=== PATIENT | female | born 1980 | race Caucasian/White ===

== ENCOUNTER 2021-02-25 19:08 | Emergency (ER) | payer OTHER ==
[~2021-02-25] VITALS: Ht 149.9 cm; Wt 77.3 kg
[2021-02-25 20:28] VITALS: BP 117/75
[2021-02-25 21:11] LABS: COVID AG,FIA SOURCE NASOPHARYNGEAL
[2021-02-25 21:49] LABS: INFLUENZA TYPE A NEGATIVE FOR TYPE A (NEGATIVE); INFLUENZA TYPE B NEGATIVE FOR TYPE B (NEGATIVE)
== END 2021-02-25 22:40 | disposition home or self-care (01) ==
LOC: EMS 19:12
DX: U07.1 COVID-19 (principal); F17.210 Nicotine dependence, cigarettes, uncomplicated
CPT/HCPCS: 87426; 87804; 99283; U0003

== ENCOUNTER 2021-04-29 20:00 | Emergency (ER) | payer OTHER ==
[~2021-04-29] VITALS: Ht 149.9 cm; Wt 79.5 kg
[2021-04-29 20:15] VITALS: BP 133/85
[2021-04-29 20:26] LABS: COVID AG,FIA SOURCE NASAL SWAB
== END 2021-04-29 20:30 | disposition home or self-care (01) ==
LOC: EMS 20:03
DX: Z20.822 Contact with and (suspected) exposure to COVID-19 (principal)
CPT/HCPCS: 87426; 99283; C9803

== ENCOUNTER 2021-04-30 21:15 | Emergency (ER) | payer OTHER | END 2021-04-30 21:53 | disposition left against medical advice (07) | LOC: EMS 21:24 | DX: Z20.822 Contact with and (suspected) exposure to COVID-19 (principal); Z53.21 Procedure and treatment not carried out due to patient leaving prior to being seen by health care provider ==

== ENCOUNTER 2021-10-26 22:19 | Emergency (ER) | payer OTHER ==
[~2021-10-26] VITALS: Ht 149.9 cm; Wt 61.8 kg
[2021-10-26] MEDS ORDERED: PROPARACAINE HCL 0.5% 15 ML OPHTHALMIC SOLUTION ONE (23:35)
[2021-10-26] MEDS ORDERED: TETRACAINE HCL/PF 0.5% 4 ML OPHTHALMIC SOLUTION OS ONE (23:45)
[2021-10-26] MEDS ORDERED: PROPARACAINE HCL 0.5% 15 ML OPHTHALMIC SOLUTION OS ONE (23:45)
[2021-10-27] MEDS ORDERED: MOXI3DRO27 OS (00:45)
[2021-10-27] MEDS ORDERED: KETO.5OS OS (00:46)
[2021-10-27 00:51] VITALS: BP 118/71
== END 2021-10-27 00:54 | disposition home or self-care (01) ==
LOC: EMS 22:20
DX: S05.02XA Injury of conjunctiva and corneal abrasion without foreign body, left eye, initial encounter (principal); X58.XXXA Exposure to other specified factors, initial encounter; Y93.89 Activity, other specified; Y92.89 Other specified places as the place of occurrence of the external cause; Y99.8 Other external cause status
CPT/HCPCS: 99284; J9035; Z7502; Z7610

== ENCOUNTER 2022-07-08 06:33 | Emergency (ER) | payer OTHER ==
[~2022-07-08] VITALS: Ht 149.9 cm; Wt 62.3 kg
[~2022-07-08 06:33] MED LIST: KETO-108 OS; MOXI3DRO27 OS
[2022-07-08 06:35] VITALS: BP 129/81
[2022-07-08] MEDS ORDERED: GuaiFENesin/D-METHORPHAN [SUGAR-FREE] 200-20MG/10 ML SYRUP UDCUP PO ONE (07:15)
[2022-07-08] MEDS ORDERED: ACETAMINOPHEN 500 MG TABLET PO ONE (07:15)
[2022-07-08 07:24] LABS: COVID AG,FIA SOURCE NASOPHARYNGEAL
[2022-07-08 07:52] LABS: INFLUENZA TYPE A NEGATIVE FOR TYPE A (NEGATIVE); INFLUENZA TYPE B NEGATIVE FOR TYPE B (NEGATIVE)
[2022-07-08 08:22] LABS: RAPID GROUP A STREP NEGATIVE (NEGATIVE)
[2022-07-08] MEDS ORDERED: ACET-66 PO (08:30)
[2022-07-08] MEDS ORDERED: GUAIFDM PO (08:30)
== END 2022-07-08 08:40 | disposition home or self-care (01) ==
LOC: EMS 06:34
DX: J02.9 Acute pharyngitis, unspecified (principal); Z20.822 Contact with and (suspected) exposure to COVID-19
CPT/HCPCS: 87430; 87804; 99283